=== PATIENT | female | born 1970 | race Caucasian/White ===

== ENCOUNTER → 2020-11-07 | Outpatient (CLI) | payer OTHER ==
[~2020-11-07] MED LIST: DIAZ2 PO; OXYACE5T PO; PRED20 PO
[2020-11-07 13:20] LABS: Microalb/Creat Ratio UR, Rand 81.102 mg/g (0.000-30.000)
== END | disposition home or self-care (01) ==
LOC: LAB SHORT 11:11 → LAB 11:11
PROVIDERS: Family Medicine
DX: N39.0 Urinary tract infection, site not specified (principal)
CPT/HCPCS: 82043; 82570; 87077; 87086; 87186

== ENCOUNTER → 2021-12-13 | Outpatient (CLI) | payer OTHER | END | disposition home or self-care (01) | LOC: LAB SHORT 12:56 → LAB 12:56 | DX: N39.0 Urinary tract infection, site not specified (principal) | CPT/HCPCS: 87077; 87086; 87186 ==

== ENCOUNTER → 2022-01-28 | Outpatient (CLI) | payer OTHER | END | disposition home or self-care (01) | LOC: LAB SHORT 10:30 | DX: N39.0 Urinary tract infection, site not specified (principal) | CPT/HCPCS: 87077; 87086; 87186 ==

== ENCOUNTER → 2022-02-18 | Outpatient (CLI) | payer OTHER ==
[2022-02-18 15:47] LABS: Microalb/Creat Ratio UR, Rand 87.339 mg/g (0.000-30.000); Microalbumin, Random Urine 95.2 mg/L (0.000-20.000)
== END | disposition home or self-care (01) ==
LOC: LAB SHORT 11:19 → LAB 11:19
PROVIDERS: Family Medicine
DX: E11.51 Type 2 diabetes mellitus with diabetic peripheral angiopathy without gangrene (principal); E11.42 Type 2 diabetes mellitus with diabetic polyneuropathy; E11.620 Type 2 diabetes mellitus with diabetic dermatitis
CPT/HCPCS: 82043; 82570

== ENCOUNTER → 2022-10-20 | Outpatient (CLI) | payer OTHER | END | disposition home or self-care (01) | LOC: LAB SHORT 12:36 → LAB 12:36 | DX: S99.922A Unspecified injury of left foot, initial encounter (principal); N39.0 Urinary tract infection, site not specified | CPT/HCPCS: 84550; 87077; 87086; 87186 ==

== ENCOUNTER 2023-08-27 12:02 | Inpatient (IN) | payer OTHER ==
[~2023-08-27] VITALS: Ht 165.1 cm; Wt 117.7 kg
[2023-08-27 14:42] LABS: Source, Urine Clean Catch
[2023-08-27 14:48] LABS: Appearance, Urine Cloudy (Clear); Blood, Urine 2+ (Neg); Color, Urine Amber (P-Yellow); Glucose Qualitative, Urine Neg (Neg); Ketones, Urine 1+ (Neg); Leukocyte Esterase, Urine 2+ (Neg); Nitrite, Urine Neg (Neg); Protein, Urine 2+ (Neg); Specific Gravity, Urine 1.025 (1.003-1.022); Urobilinogen, Urine 1+ (Normal)
[2023-08-27 14:59] LABS: Bilirubin, Urine 2+ (Neg)
[2023-08-27 15:00] LABS: Calcium Oxalate Crystals Mod /hpf
[2023-08-27 15:01] LABS: Bacteria Many /hpf; Red Blood Cells, Urine 0-2 /hpf (0-2); Squamous Epithelial Cells Few /hpf (Few)
[2023-08-27] MEDS ORDERED: LISI20 PO (15:31)
[2023-08-27] MEDS ORDERED: Lactated Ringer's 1,000 ML IV SCH (16:00)
[2023-08-27] MEDS ORDERED: Piperacillin/Tazobactam Sod 3.375 GM in NS 100 ML IV ONE (16:00)
[2023-08-27] MEDS ORDERED: OxyCODONE HCL 5 MG TAB PO PRN (20:50)
[2023-08-27] MEDS ORDERED: FentaNYL Citrate 50 MCG/ML 2 ML Injection IV PRN (20:50)
[2023-08-27] MEDS ORDERED: Ondansetron HCl 2 MG / ML 2ML Vial IV PRN (20:50)
[2023-08-27] MEDS ORDERED: HydrALAZINE HCl 20 MG / ML 1ML Vial IV PRN (20:55)
[2023-08-27] MEDS ORDERED: NS 1,000 ML IV SCH (20:55)
[2023-08-27] MEDS ORDERED: Sennosides 8.6 MG Tab PO SCH (21:00)
[2023-08-27] MEDS ORDERED: NS 1,000 ML IV ONE (21:00)
[2023-08-27 22:14] VITALS: BP 167/98
--- NOTE | 2023-08-27 22:44 | NUR ---
ARRIVAL PT NEW ADMIT FROM ER WITH CHOLELITHIASIS AND CHOLECYSTITIS. PT REPORTS NO RUQ OR EPIGASTRIC PAIN, REPORTS SHE THINKS SHE PASSED THE GALLSTONES. CURRENTLY TOLLERATING PO INTAKE W/O N/V. A/OX4, REPORTS CHRONIC LOWER BACK PAIN AND BLE NEUROPATHY. OTHERWISE NO ACUTE FINDINGS. PLAN TO BE NPO AT 0000 AND PREPARE FOR SURGERY
[2023-08-28] MEDS ORDERED: Piperacillin/Tazobactam Sod 3.375 GM in NS 100 ML IV SCH
[2023-08-28 04:01] VITALS: BP 156/86
--- NOTE | 2023-08-28 04:37 | NUR ---
SHIFT SUMMARY VSS. PT SLEPT WELL AFTER ARRIVING TO THE FLOOR. AMBUALTING INDEP TO BATHROOM, VOIDING W/O DIFFICULTY. REPORTS VAGUE URINARY SYMPTOMS T/O THE SHIFT, STRONG SMELLING URINE AND LOWER ABD DISCOMFORT. REPORTS HER ABD FEELS BETTER AND HAS HAD NO PAIN SINCE BEING IN THE ER. PT HAS BEEN NPO SINCE 0000 IN ANTICIAPTION FOR SURG. IVF INFUSING. OVERALL NO ACUTE EVENTS NOTED.
[2023-08-28 05:23] LABS: BASOPHILS ABSOLUTE AUTO 0.07 K/mm3 (0.00-0.23); BASOPHILS PERCENT AUTO 1 % (0-2); EOSINOPHILS PERCENT AUTO 4 % (0-6); Hematocrit 41.7 % (33.0-51.0); Hemoglobin 14.4 g/dL (11.5-16.0); IMMATURE GRAN ABSOLUTE AUTO 0.04 K/mm3 (0.00-0.10); IMMATURE GRAN PERCENT AUTO 1 % (0-1); LYMPHOCYTES ABSOLUTE AUTO 2.25 K/mm3 (0.84-5.20); LYMPHOCYTES PERCENT AUTO 29 % (21-46); MONOCYTES ABSOLUTE AUTO 0.45 K/mm3 (0.16-1.47); MONOCYTES PERCENT AUTO 6 % (4-13); Mean Corpuscular HGB Conc 34.5 g/dL (31.5-36.5); Mean Corpuscular Volume 90 fL (80-100); Mean Platelet Volume 10.1 fL (9.1-12.4); NEUTROPHILS ABSOLUTE AUTO 4.63 K/mm3 (1.96-9.15); NEUTROPHILS PERCENT AUTO 60 % (41-73); Platelet Count 278 K/mm3 (150-400); RDW Standard Deviation 42.6 fL (35.1-46.3); Red Blood Cell Count 4.65 M/mm3 (3.80-5.20); White Blood Cell Count 7.74 K/mm3 (4.00-11.30)
[2023-08-28 05:56] LABS: Albumin, Blood 3.2 g/dL (3.4-5.0); Albumin/Globulin Ratio 0.8 (0.8-1.8); Bilirubin, Direct 0.2 mg/dL (0.0-0.3); Bilirubin, Indirect 0.5 mg/dL (0.1-0.7); Bilirubin, Total 0.7 mg/dL (0.1-1.0); Bun/Creatinine Ratio 21.2 (12.0-20.0); Calcium, Blood 8.7 mg/dL (8.5-10.1); Creatinine, Blood 0.8 mg/dL (0.40-1.00); Globulin, Blood 3.8 g/dL (2.2-4.0); Potassium, Blood 3.9 mmol/L (3.5-5.5)
--- NOTE | 2023-08-28 07:18 | NUR ---
assessment: pt sleeping. snoring softly. call light in reach. no s/s distress. surgical pkt completed. pre op wash done. pt npo. will await surgery time and fully assess when pt is awake and alert.
[2023-08-28] MEDS ORDERED: Insulin Human Lispro 100 Units/ML 3ML Syringe SC SCH ×2 (07:30)
[2023-08-28 08:19] VITALS: BP 178/96
--- NOTE | 2023-08-28 08:30 | NUR ---
BLOOD PRESSURE: PT HYPERTENSIVE, SBP IN THE 170'S. PRN HYDRALAZINE GIVEN. WILL CONT TO MONITOR.
[2023-08-28 14:35] VITALS: BP 161/92
--- NOTE | 2023-08-28 18:37 | NUR ---
PT HAS BEEN STABLE AND PAIN FREE THIS SHIFT AWAITING SURGERY FOR CHOLECYSTECTOMY. PT HAS BEEN NPO. BLOOD SUGARS STABLE, Q6HR CHECKS. PT VOIDING WELL WITH NO UTI SYMPTOMS. NO NAUSEA. IV INFUSING PER ORDERS. PREOP WASH DONE AND SURGICAL PKT COMPLETED. PT INDEP IN ROOM AND TO AMBULATE. PT CONSIDERING LEAVING IF UNABLE TO HAVE SURGERY TODAY.
--- NOTE | 2023-08-28 20:15 | NUR ---
AMA BEDSIDE REPORT WITH JEISON KERNS @ [facility]. PT IN BED WITH IV FLUIDS INFUSING. PT VERBALIZED UNDERSTANDING OF PLAN TO GO TO OR FOR SURGERY LATER IN THE DAY. THIS RN WAS IN ANOTHER PATIENT ROOM FROM [facility]OX 191 TO 2009. WHEN WALKING BACK TO THE DESK, THIS RN WAS NOTIFIED BY [employer]UST[employer] LIQUOR MAKER ANICETO THAT THE PATIENT WAS NO LONGER IN THIS ROOM AND HAD LEFT THE HOSPITAL. THIS RN WAS NOTIFIED THAT THE PATIENT WAS NOT VISUALIZED WHEN SHE LEFT AND WHEN WALKING INTO PATIENT ROOM, HER GOWN WAS ON THE BED AND IV FLUIDS WERE INFUSING ONTO THE FLOOR. THE IV THAT WAS PLACED IN PATIENT ARM WAS NOT FOUND IN ROOM WHEN CHECKED. NO OTHER PERSONAL BELONINGS WERE FOUND IN ROOM.
== END 2023-08-28 20:30 | disposition left against medical advice (07) | DRG 445 ==
LOC: ER 12:02 → SURS 20:47 → MEDS 20:47 → SURS 21:55
PROVIDERS: Nurse Practitioner Acute Care; Student in an Organized Health Care Education/Training Program; ADMIT Student in an Organized Health Care Education/Training Program
DX: K81.0 Acute cholecystitis (principal); N39.0 Urinary tract infection, site not specified; E80.6 Other disorders of bilirubin metabolism; I10 Essential (primary) hypertension; F17.210 Nicotine dependence, cigarettes, uncomplicated; E11.9 Type 2 diabetes mellitus without complications; F32.A Depression, unspecified; F41.9 Anxiety disorder, unspecified; Z53.29 Procedure and treatment not carried out because of patient's decision for other reasons; Z88.1 Allergy status to other antibiotic agents; Z79.899 Other long term (current) drug therapy; R10.11 Right upper quadrant pain; R16.0 Hepatomegaly, not elsewhere classified; E88.89 Other specified metabolic disorders; N32.89 Other specified disorders of bladder
CPT/HCPCS: 36415; 74181; 76705; 80053; 81001; 81025; 82247; 82248; 82947; 85025; 87077; 87086; 87186; 93005; 93010; 96374; 99285-25; A9270; J0360; J2543; J7030; J7120

== ENCOUNTER 2023-11-26 21:35 | Emergency (ER) | payer OTHER ==
[~2023-11-26] VITALS: Ht 165.1 cm; Wt 113.4 kg
[~2023-11-26 21:35] MED LIST changes: +LISI20 PO
[2023-11-26 21:39] VITALS: BP 158/90
[2023-11-26] MEDS ORDERED: Bactrim Ds Tab1 EACH PO (22:15)
[2023-11-26] MEDS ORDERED: Trimethoprim/Sulfamethoxazole DS Tab PO ONE (22:15)
== END 2023-11-26 22:22 | disposition home or self-care (01) ==
LOC: ER 21:35
DX: L02.212 Cutaneous abscess of back [any part, except buttock and flank] (principal); I10 Essential (primary) hypertension; E11.9 Type 2 diabetes mellitus without complications; F17.200 Nicotine dependence, unspecified, uncomplicated; Z88.1 Allergy status to other antibiotic agents; Z79.899 Other long term (current) drug therapy
CPT/HCPCS: 10061; 99283-25; A9270

== ENCOUNTER 2023-12-06 18:00 | Emergency (ER) | payer OTHER ==
[~2023-12-06] VITALS: Ht 165.1 cm; Wt 113.4 kg
[~2023-12-06 18:00] MED LIST changes: +Bactrim Ds Tab1 EACH PO
[2023-12-06 19:21] LABS: BASOPHILS ABSOLUTE AUTO 0.06 K/mm3 (0.00-0.23); BASOPHILS PERCENT AUTO 1 % (0-2); EOSINOPHILS ABSOLUTE AUTO 0.17 K/mm3 (0.00-0.68); EOSINOPHILS PERCENT AUTO 2 % (0-6); Hematocrit 44.6 % (33.0-51.0); Hemoglobin 15.1 g/dL (11.5-16.0); IMMATURE GRAN ABSOLUTE AUTO 0.06 K/mm3 (0.00-0.10); IMMATURE GRAN PERCENT AUTO 1 % (0-1); LYMPHOCYTES ABSOLUTE AUTO 3.09 K/mm3 (0.84-5.20); LYMPHOCYTES PERCENT AUTO 38 % (21-46); MONOCYTES ABSOLUTE AUTO 0.47 K/mm3 (0.16-1.47); MONOCYTES PERCENT AUTO 6 % (4-13); Mean Corpuscular HGB 29.8 pg (26.0-34.0); Mean Corpuscular HGB Conc 33.9 g/dL (31.5-36.5); Mean Corpuscular Volume 88 fL (80-100); Mean Platelet Volume 9.5 fL (9.1-12.4); NEUTROPHILS ABSOLUTE AUTO 4.33 K/mm3 (1.96-9.15); NEUTROPHILS PERCENT AUTO 53 % (41-73); Platelet Count 309 K/mm3 (150-400); RDW Coefficient Variation 12.3 % (11.7-14.2); Red Blood Cell Count 5.07 M/mm3 (3.80-5.20); White Blood Cell Count 8.18 K/mm3 (4.00-11.30)
[2023-12-06 19:35] LABS: Albumin, Blood 3.7 g/dL (3.4-5.0); Bilirubin, Total 0.2 mg/dL (0.1-1.0); Bun/Creatinine Ratio 26.6 (12.0-20.0); Calcium, Blood 9.2 mg/dL (8.5-10.1); Creatinine, Blood 0.83 mg/dL (0.40-1.00); Globulin, Blood 3.8 g/dL (2.2-4.0); Potassium, Blood 4.6 mmol/L (3.5-5.5); Total Protein, Blood 7.5 g/dL (6.4-8.2)
[2023-12-06 19:52] VITALS: BP 154/90
== END 2023-12-06 20:49 | disposition left against medical advice (07) ==
LOC: ER 18:00
PROVIDERS: Student in an Organized Health Care Education/Training Program
DX: L02.212 Cutaneous abscess of back [any part, except buttock and flank] (principal); Z53.21 Procedure and treatment not carried out due to patient leaving prior to being seen by health care provider
CPT/HCPCS: 80053; 85025

== ENCOUNTER 2023-12-29 03:51 | Observation (INO) | payer OTHER ==
[~2023-12-29] VITALS: Ht 165.1 cm; Wt 113.4 kg
[2023-12-29 04:15] LABS: BASOPHILS ABSOLUTE AUTO 0.05 K/mm3 (0.00-0.23); BASOPHILS PERCENT AUTO 1 % (0-2); EOSINOPHILS ABSOLUTE AUTO 0.25 K/mm3 (0.00-0.68); EOSINOPHILS PERCENT AUTO 3 % (0-6); Hematocrit 42.4 % (33.0-51.0); Hemoglobin 14.2 g/dL (11.5-16.0); IMMATURE GRAN ABSOLUTE AUTO 0.03 K/mm3 (0.00-0.10); IMMATURE GRAN PERCENT AUTO 0 % (0-1); LYMPHOCYTES ABSOLUTE AUTO 1.89 K/mm3 (0.84-5.20); LYMPHOCYTES PERCENT AUTO 26 % (21-46); MONOCYTES ABSOLUTE AUTO 0.39 K/mm3 (0.16-1.47); MONOCYTES PERCENT AUTO 5 % (4-13); Mean Corpuscular HGB 29.6 pg (26.0-34.0); Mean Corpuscular HGB Conc 33.5 g/dL (31.5-36.5); Mean Corpuscular Volume 89 fL (80-100); Mean Platelet Volume 9.7 fL (9.1-12.4); NEUTROPHILS ABSOLUTE AUTO 4.65 K/mm3 (1.96-9.15); NEUTROPHILS PERCENT AUTO 64 % (41-73); Platelet Count 269 K/mm3 (150-400); RDW Standard Deviation 42.5 fL (35.1-46.3); Red Blood Cell Count 4.79 M/mm3 (3.80-5.20); White Blood Cell Count 7.26 K/mm3 (4.00-11.30)
[2023-12-29] MEDS ORDERED: Morphine Sulfate 4 MG/1 ML Injection IV ONE (04:40)
[2023-12-29] MEDS ORDERED: Ondansetron HCl 2 MG / ML 2ML Vial IV ONE (04:40)
[2023-12-29 04:41] LABS: Albumin, Blood 3.7 g/dL (3.4-5.0); Bilirubin, Total 1.5 mg/dL (0.1-1.0); Calcium, Blood 9.7 mg/dL (8.5-10.1); Creatinine, Blood 0.85 mg/dL (0.40-1.00); Globulin, Blood 3.6 g/dL (2.2-4.0); Potassium, Blood 4.1 mmol/L (3.5-5.5); Total Protein, Blood 7.3 g/dL (6.4-8.2)
[2023-12-29] MEDS ORDERED: Ondansetron HCl 2 MG / ML 2ML Vial IV PRN (06:05)
[2023-12-29] MEDS ORDERED: FentaNYL Citrate 50 MCG/ML 2 ML Injection IV PRN (06:05)
[2023-12-29] MEDS ORDERED: NS 1,000 ML IV SCH (06:05)
[2023-12-29] MEDS ORDERED: FLU VACC TS2024-25(6MOS UP)/PF 45 MCG/0.5 ML SYRINGE IM SCH (06:10)
[2023-12-29 08:30] LABS: International Normalized Ratio 0.94; Prothrombin Time Results 10.1 Sec (9.7-11.5)
[2023-12-29 09:00] VITALS: BP 163/93
[2023-12-29] MEDS ORDERED: LORazepam 1 MG Tab PO PRN (10:50)
--- NOTE | 2023-12-29 11:00 | NUR ---
DR ELLIS IN TO SEE PT.
[2023-12-29 12:32] VITALS: BP 153/92
[2023-12-29] MEDS ORDERED: NS 1,000 ML IV ONE (13:15)
[2023-12-29 14:44] VITALS: BP 162/102
[2023-12-29 14:45] VITALS: BP 163/98
--- NOTE | 2023-12-29 15:30 | NUR ---
PT TO MRI
[2023-12-29] MEDS ORDERED: HydrALAZINE HCl 20 MG / ML 1ML Vial IV PRN (16:15)
[2023-12-29] MEDS ORDERED: Ampicillin Sod/Sulbactam Sod 3 GM in NS 100 ML IV SCH (18:00)
[2023-12-29] MEDS ORDERED: Insulin Human Lispro 100 Units/ML 3ML Syringe SC SCH (18:00)
--- NOTE | 2023-12-29 18:51 | NUR ---
summary no acute changes t/o shift. pt had mri this afternoon. has been sleeping most of afternoon. tolerated clear liquid diet. voiding nicolas urine. call light in reach.
[2023-12-29 19:16] VITALS: BP 154/92
[2023-12-30 05:24] LABS: BASOPHILS ABSOLUTE AUTO 0.05 K/mm3 (0.00-0.23); BASOPHILS PERCENT AUTO 1 % (0-2); EOSINOPHILS ABSOLUTE AUTO 0.27 K/mm3 (0.00-0.68); EOSINOPHILS PERCENT AUTO 3 % (0-6); Hemoglobin 14.5 g/dL (11.5-16.0); IMMATURE GRAN ABSOLUTE AUTO 0.05 K/mm3 (0.00-0.10); IMMATURE GRAN PERCENT AUTO 1 % (0-1); LYMPHOCYTES ABSOLUTE AUTO 2.21 K/mm3 (0.84-5.20); LYMPHOCYTES PERCENT AUTO 22 % (21-46); MONOCYTES ABSOLUTE AUTO 0.55 K/mm3 (0.16-1.47); MONOCYTES PERCENT AUTO 6 % (4-13); Mean Corpuscular HGB 30.1 pg (26.0-34.0); Mean Corpuscular HGB Conc 33.7 g/dL (31.5-36.5); Mean Corpuscular Volume 89 fL (80-100); Mean Platelet Volume 9.6 fL (9.1-12.4); NEUTROPHILS ABSOLUTE AUTO 6.73 K/mm3 (1.96-9.15); NEUTROPHILS PERCENT AUTO 68 % (41-73); Platelet Count 275 K/mm3 (150-400); RDW Standard Deviation 42.7 fL (35.1-46.3); Red Blood Cell Count 4.82 M/mm3 (3.80-5.20); White Blood Cell Count 9.86 K/mm3 (4.00-11.30)
[2023-12-30 06:14] LABS: Albumin, Blood 3.4 g/dL (3.4-5.0); Bilirubin, Total 0.9 mg/dL (0.1-1.0); Bun/Creatinine Ratio 14.4 (12.0-20.0); Calcium, Blood 9.5 mg/dL (8.5-10.1); Creatinine, Blood 0.63 mg/dL (0.40-1.00); Globulin, Blood 3.3 g/dL (2.2-4.0); Total Protein, Blood 6.7 g/dL (6.4-8.2)
--- NOTE | 2023-12-30 07:17 | NUR ---
SUMMARY PT REMAINS NPO. DENIED NEED FOR PAIN MED LAST NIGHT.PT REPORTS ISSUE WITH TOOTH SAME PREOP.PT REPORTS DOCTORS AWARE. DR ELLIS AT BEDSIDE THIS AM AND VERB TO PT NEED FOR TRANSFER FOR ERCP.
[2023-12-30 07:19] VITALS: BP 140/85
[2023-12-30] MEDS ORDERED: NS 250 ML IV PRN (10:00)
--- NOTE | 2023-12-30 13:58 | NUR ---
Pt. is awake in bed and welcomed my visit. Pt. is pleasant, but does display evidence of discomfort. Facilitate a life review where the Pt. vebralized an dexpectation to be transferred to another hospital who is able to do her surgery. Listen with empathy and sought to normalize the Pt. experience. When this type soldering machine tender asked about home, the Pt. displays evidence of emotion. As Pastoral Care is given, so is prayer. Pt. verbalized gratitude for the spiritual care visit. Will remain available to the Pt. Note: after the visit this type soldering machine tender requested one of therapy dogs to visit the Pt.
[2023-12-30 15:40] VITALS: BP 153/87
[2023-12-30] MEDS ORDERED: Amoxicillin/Clavulanate K 875 MG Tab PO SCH (17:00)
--- NOTE | 2023-12-30 17:01 | NUR ---
BED AVAILABLE AT [facility]. 446. PHONE NUMBER [phone].
[2023-12-30 17:25] LABS: HEPATITIS A ANTIBODY, IGM Negative (Negative); HEPATITIS B CORE ANTIBODY, IGM Negative (Negative); HEPATITIS B SURFACE ANTIGEN Negative (Negative); HEPATITIS C AB CIA INTERP Negative (Negative)
[2023-12-30 17:56] VITALS: BP 153/87
--- NOTE | 2023-12-30 18:50 | NUR ---
REPORT CALLED TO LISSY AT [phone]
--- NOTE | 2023-12-30 18:54 | NUR ---
PT LEFT UNIT VIA TRANSPORT FOR [facility].
== END 2023-12-30 19:00 | disposition short-term general hospital (02) ==
LOC: ER 03:51 → ERHOLD 03:52 → SURS 03:52 → ERHOLD 03:52 → SURS 08:37
PROVIDERS: Emergency Medicine; Registered Nurse; ADMIT Internal Medicine
DX: K80.20 Calculus of gallbladder without cholecystitis without obstruction (principal); F17.210 Nicotine dependence, cigarettes, uncomplicated; E11.22 Type 2 diabetes mellitus with diabetic chronic kidney disease; I12.9 Hypertensive chronic kidney disease with stage 1 through stage 4 chronic kidney disease, or unspecified chronic kidney disease; N18.2 Chronic kidney disease, stage 2 (mild); E11.40 Type 2 diabetes mellitus with diabetic neuropathy, unspecified; M10.9 Gout, unspecified; Z79.899 Other long term (current) drug therapy; Z88.1 Allergy status to other antibiotic agents
CPT/HCPCS: 36415; 74181; 76705; 80053; 80074; 82947; 83690; 83880; 85025; 85610; 93005; 93010; 96365; 96366; 96374; 96375; 99285-25; A9270; G0378; J0295; J2270; J2405; J7030; J7050

== ENCOUNTER 2024-01-08 08:03 | Emergency (ER) | payer OTHER ==
[~2024-01-08] VITALS: Ht 165.1 cm; Wt 113.4 kg
[2024-01-08] MEDS ORDERED: OxyCODONE 7.5 mg/Acetam 325 mg TABLET PO ONE (08:50)
[2024-01-08] MEDS ORDERED: Simethicone 80 MG Chew PO ONE (08:50)
[2024-01-08] MEDS ORDERED: METF500 PO (11:36)
[2024-01-08] MEDS ORDERED: Percocet 5-3251 EACH PO (11:36)
[2024-01-08] MEDS ORDERED: LOSA50 PO (11:36)
[2024-01-08] MEDS ORDERED: Flomax0.4 MG PO (11:36)
[2024-01-08] MEDS ORDERED: Lantus100 UNIT/1 SC (11:36)
[2024-01-08] MEDS ORDERED: Magic Bullet10 MG PR (11:36)
[2024-01-08] MEDS ORDERED: ATOR40TA PO (11:36)
[2024-01-08] MEDS ORDERED: SIME80CH PO (11:36)
[2024-01-08] MEDS ORDERED: ACETAMINOPHEN500 MG PO (11:36)
[2024-01-08] MEDS ORDERED: Methocarbamol500 MG PO (11:36)
[2024-01-08] MEDS ORDERED: SENN187 PO (11:36)
[2024-01-08 11:45] VITALS: BP 129/82
== END 2024-01-08 11:49 | disposition home or self-care (01) ==
LOC: ER 08:03
DX: G89.18 Other acute postprocedural pain (principal); R10.11 Right upper quadrant pain; R10.12 Left upper quadrant pain; I12.9 Hypertensive chronic kidney disease with stage 1 through stage 4 chronic kidney disease, or unspecified chronic kidney disease; E11.22 Type 2 diabetes mellitus with diabetic chronic kidney disease; N18.2 Chronic kidney disease, stage 2 (mild); E11.40 Type 2 diabetes mellitus with diabetic neuropathy, unspecified; F17.200 Nicotine dependence, unspecified, uncomplicated; Z90.49 Acquired absence of other specified parts of digestive tract; Z88.1 Allergy status to other antibiotic agents
CPT/HCPCS: 99283; A9270

== ENCOUNTER → 2024-01-18 | Outpatient (CLI) | payer OTHER ==
[~2024-01-18] MED LIST changes: +ACETAMINOPHEN500 MG PO; +ATOR40TA PO; +Flomax0.4 MG PO; +LOSA50 PO; +Lantus100 UNIT/1 SC; +METF500 PO; +Magic Bullet10 MG PR; +Methocarbamol500 MG PO; +Percocet 5-3251 EACH PO; +SENN187 PO; +SIME80CH PO
[2024-01-18 12:33] LABS: BASOPHILS ABSOLUTE AUTO 0.08 K/mm3 (0.00-0.23); BASOPHILS PERCENT AUTO 1 % (0-2); EOSINOPHILS ABSOLUTE AUTO 0.34 K/mm3 (0.00-0.68); EOSINOPHILS PERCENT AUTO 3 % (0-6); Hemoglobin 14.4 g/dL (11.5-16.0); IMMATURE GRAN ABSOLUTE AUTO 0.02 K/mm3 (0.00-0.10); IMMATURE GRAN PERCENT AUTO 0 % (0-1); LYMPHOCYTES ABSOLUTE AUTO 3.08 K/mm3 (0.84-5.20); LYMPHOCYTES PERCENT AUTO 30 % (21-46); MONOCYTES ABSOLUTE AUTO 0.51 K/mm3 (0.16-1.47); MONOCYTES PERCENT AUTO 5 % (4-13); Mean Corpuscular HGB 29.4 pg (26.0-34.0); Mean Corpuscular HGB Conc 33.5 g/dL (31.5-36.5); Mean Corpuscular Volume 88 fL (80-100); NEUTROPHILS ABSOLUTE AUTO 6.13 K/mm3 (1.96-9.15); NEUTROPHILS PERCENT AUTO 60 % (41-73); Platelet Count 516 K/mm3 (150-400); RDW Coefficient Variation 12.9 % (11.7-14.2); RDW Standard Deviation 41.1 fL (35.1-46.3); Red Blood Cell Count 4.89 M/mm3 (3.80-5.20); White Blood Cell Count 10.16 K/mm3 (4.00-11.30)
[2024-01-18 12:47] LABS: Albumin, Blood 3.3 g/dL (3.4-5.0); Albumin/Globulin Ratio 0.7 (0.8-1.8); Bilirubin, Total 0.3 mg/dL (0.1-1.0); Bun/Creatinine Ratio 17.8 (12.0-20.0); Calcium, Blood 9.8 mg/dL (8.5-10.1); Creatinine, Blood 1.18 mg/dL (0.40-1.00); Globulin, Blood 4.6 g/dL (2.2-4.0); Potassium, Blood 4.4 mmol/L (3.5-5.5); Total Protein, Blood 7.9 g/dL (6.4-8.2)
== END ==
LOC: LAB SHORT 12:26 → LAB 12:26
PROVIDERS: Physician Assistant
DX: T81.49XA Infection following a procedure, other surgical site, initial encounter (principal); Z90.49 Acquired absence of other specified parts of digestive tract
CPT/HCPCS: 80053; 83690; 85025; 87070; 87075; 87077; 87186; 87205

== ENCOUNTER 2024-02-17 08:36 | Day surgery (SDC) | payer OTHER ==
[~2024-02-17] VITALS: Ht 165.1 cm; Wt 118.0 kg
[~2024-02-17 08:36] MED LIST changes: +Lactated Ringer's 1,000 ML IV ONE
[2024-02-17] MEDS ORDERED: METF500 (09:10)
[2024-02-17] MEDS ORDERED: [UNRECOGNIZED DRUG - OTHER] (09:10)
[2024-02-17] MEDS ORDERED: Budeprion Xl300 MG (09:11)
[2024-02-17] MEDS ORDERED: Lactated Ringer's 1,000 ML IV ONE (09:40)
[2024-02-17] MEDS ORDERED: Benzocaine Oral Spray 0.5ML UD ONE (09:56)
[2024-02-17] MEDS ORDERED: propofoL 50 ML IV ONE ×2 (09:57→10:18)
[2024-02-17] MEDS ORDERED: Midazolam HCL 1 MG/ML 5MLVIAL ONE (10:16)
--- NOTE | 2024-02-17 10:35 | NUR ---
02/17/24 1035 KASEY ANDERSON SPRAY USED PRIOR TO ENTERING ENDO ROOM - ORDERED BY DR CAMARILLO
[2024-02-17 11:29] VITALS: BP 122/82
== END 2024-02-17 11:25 | disposition home or self-care (01) ==
LOC: ORSCSDS 08:36
DX: K92.1 Melena (principal); R19.4 Change in bowel habit; R14.0 Abdominal distension (gaseous); R10.13 Epigastric pain; D12.3 Benign neoplasm of transverse colon; K57.30 Diverticulosis of large intestine without perforation or abscess without bleeding; E11.9 Type 2 diabetes mellitus without complications; E78.5 Hyperlipidemia, unspecified; E66.01 Morbid (severe) obesity due to excess calories; Z68.41 Body mass index [BMI] 40.0-44.9, adult; I10 Essential (primary) hypertension; Z79.84 Long term (current) use of oral hypoglycemic drugs; Z79.899 Other long term (current) drug therapy
CPT/HCPCS: 82947; 88305; 88342; A9270; J2250; J2704; J7120

== ENCOUNTER → 2025-02-09 | Outpatient (CLI) | payer OTHER ==
[~2025-02-09] MED LIST changes: +Budeprion Xl300 MG; -Lactated Ringer's 1,000 ML IV ONE; +METF500; +[UNRECOGNIZED DRUG - OTHER]
== END ==
LOC: LAB SHORT 11:00 → LAB 11:00
DX: R39.9 Unspecified symptoms and signs involving the genitourinary system (principal)
CPT/HCPCS: 87077; 87086; 87186